=== PATIENT | male | born 1955 | race Caucasian/White ===

== ENCOUNTER 2022-02-22 08:07 | Observation (INO) ==
--- NOTE | 2022-01-20 10:04 | PAT Medication Instructions ---
Medication Instructions Date of Service January 20, 2022 Home Medications atorvastatin 40 mg tablet 40 mg PO QAM cholecalciferol (vitamin D3) 50 mcg (2,000 unit) tablet (Vitamin D3) 50 mcg PO QAM coenzyme Q10 100 mg capsule (CoQ-10) 100 mg PO QAM esomeprazole magnesium 40 mg capsule,delayed release (Nexium) 40 mg PO QAM ibuprofen 800 mg tablet 800 mg PO DAILY PRN montelukast 10 mg tablet (Singulair) 10 mg PO DAILY PRN telmisartan 80 mg tablet 80 mg PO QAM ASK your surgeon for instructions ibuprofen 800 mg tablet 800 mg PO DAILY PRN STOP taking 2 weeks before surgery coenzyme Q10 100 mg capsule (CoQ-10) 100 mg PO QAM DO NOT take the morning of surgery cholecalciferol (vitamin D3) 50 mcg (2,000 unit) tablet (Vitamin D3) 50 mcg PO QAM montelukast 10 mg tablet (Singulair) 10 mg PO DAILY PRN telmisartan 80 mg tablet 80 mg PO QAM Take morning of surgery With a small sip of water, OTHERWISE NOTHING TO EAT OR DRINK AFTER MIDNIGHT: atorvastatin 40 mg tablet 40 mg PO QAM esomeprazole magnesium 40 mg capsule,delayed release (Nexium) 40 mg PO QAM Other Notes If you have any questions please call us at [phone] or [phone] or [phone] or [phone]
--- NOTE | 2022-01-24 08:57 | Anesthesiology Consultation ---
Date of Service January 24, 2022 Assessment & Plan (1) Encounter for pre-operative examination: - check BSG am DOS. - Case discussed with Dr. Tubbs in detail including below and he advised nothing additional needed prior to surgery and that patient is acceptable risk to proceed. - CANO/SOB: chronic per pt, associated with occasional wheezes that per pt have been attributed to reflux, has upcoming PFTs and CT scan with pulm. He occasionally feels slightly more out of breath over past few days-while sitting up-denies chest discomfort, pleuritic chest discomfort, or change in peripheral edema/leg pain. He attributes this to anxiety regarding the surgery. Non- dyspneic, in NAD in clinic, speaking in full sentences without difficulty. Vitals stable. Normal cardiac and pulmonary examinations. 1+ pitting edema LLE, trace pitting edema RLE (chronic per pt without change or worsening) without erythema, warmth, tenderness or abnormality to palpation of distal lower extremities bilat. He was advised to contact his pulmonology office today and seek prompt medical attention for new or worsened symptoms. He verbalized understanding and agreement, denied questions or concerns. Optimization note with PAT testing for continuity of care to be faxed to pulmonology office. - COVID screening: Per assessment on 01/24/2022: Travel screen negative, no known COVID-19 positive contacts or current COVID-19 related symptoms in past 2 weeks. Pt vaccinated. Surgeon arranging preop COVID testing, scheduled 02/18/2022. Awaiting results. Chart Review Chart Review: Acceptable Risk for Surgery and Patient seen in Pre Admission Testing Teaching & Discussion Pre-Anesthesia Teaching/Discussion Notes: Instructed NPO after midnight before surgery, except medications with 15 cc of water. Medication instructions provided according to the PAT guidelines. History Surgery Operation Date: 02/22/22 10:15 Proposed Procedures p Left Total Knee Arthroplasty - Walt Miller DO Height/Weight Height: 6 ft 1 in Weight: 137.8 kg Allergies Allergy/AdvReac Type Severity Reaction Status Date / Time No Known Allergies Allergy Verified 01/19/22 11:12 Medications Home Medications Medication Instructions Recorded Confirmed Last Taken atorvastatin 40 mg tablet 40 mg PO QAM 01/19/22 01/19/22 Unknown cholecalciferol (vitamin D3) 50 50 mcg PO QAM 01/19/22 01/19/22 Unknown mcg (2,000 unit) tablet (Vitamin D3) coenzyme Q10 100 mg capsule 100 mg PO QAM 01/19/22 01/19/22 Unknown (CoQ-10) esomeprazole magnesium 40 mg 40 mg PO QAM 01/19/22 01/19/22 Unknown capsule,delayed release (Nexium) ibuprofen 800 mg tablet 800 mg PO DAILY PRN 01/19/22 01/19/22 Unknown montelukast 10 mg tablet 10 mg PO DAILY PRN 01/19/22 01/19/22 Unknown (Singulair) telmisartan 80 mg tablet 80 mg PO QAM 01/19/22 01/19/22 Unknown Past Medical History Medical History BPH (benign prostatic hyperplasia) Diabetes mellitus, type 2 diet controlled, last A1C ~6.4 Dysphagia "at times" denies choking, food and liquids Dyspnea on exertion ongoing x 6 months preceding COVID-19 illness, occasionally worsening such as in past few days per pt and with occasional wheezes-states has upcoming PFTs and CT scan by pul; denies chest discomfort, pleuritic chest discomfort or change in chronic peripheral edema GERD (gastroesophageal reflux disease) controlled, stable per pt History of COVID-19 (~07/2021) 07/2021-required supplemental oxygen 3 months-follows with [facility] History of esophageal dilatation states that feels close to where dilatation was needed in past-otherwise typically done in combination with colonoscopy which is next scheduled for several yrs Hyperlipidemia Hypertension controlled, stable per pt Kienbock's disease left wrist Leg edema Left leg edema greater than right leg edema within the last month, treated at [facility] 11/2021- "taylor's cyst left knee" and related the cyst to the cause of the swelling. improved s/p drainage. otherwise chronic and intermittent-wearing compression stockings and following with PCP/ortho; denies change or worsening Nausea and vomiting after administration of anesthetic agent Pneumonia due to COVID-19 virus (~07/2021) treated at [facility] inpatient for ~1 week, no ventilator needed. discharged on 5lpm via n/c until October 2021. follows with PCP and Lung Center [facility]. Sciatica of right side Sleep apnea cpap-nightly Vertigo intermittent, denies recent episodes Patient denies h/o stroke, seizures, heart attack, heart failure, blood clots or blood transfusions. Exercise / Class Metabolic Activity II 4-5 Yardwork/Stairs/Walk up hill (SOB going up 1 FOS, ongoing x 6 months- worsened after COVID pneumonia) Past Family History Family History Other No family history of adverse response to anesthesia Past Surgical History Surgical History H/O oral surgery peridontal surgery H/O wisdom tooth extraction History of appendectomy History of cholecystectomy History of colonoscopy History of esophagogastroduodenoscopy (EGD) History of open reduction and internal fixation (ORIF) procedure Left ankle History of open reduction and internal fixation (ORIF) procedure left wrist with hardware and fusion S/P epidural steroid injection SI Joint injections and Lumbar Epidural steroid injections with Pain Management [facility] Jon S/P right knee arthroscopy (~1997) S/P scar revision left side of forehead S/P vasectomy Past Anesthesia History No Hx of Anesthesia Complications and No Family Hx of Anesthesia Complications History of PONV History of PONV and Hx of Motion Sickness Social History Smoking Status: Never smoker Do You Dip or Chew Tobacco: No Hx Alcohol Use: Yes alcohol intake frequency: a few times a month Hx Substance Use: No substance use type: does not use Review of Systems Patient denies chest pain, fever, chills, cough, wheezing, new or changed dizziness/lightheadedness in recent days, nausea, vomiting, or palpitations. Physical Exam Vital Signs Vitals BP 121/81 P 80 SP02 95% on RA RESP 17 Physical Full cervical extension range of motion without pain TMD 3.5 finger breaths Mallampati Score 4 Dentition: intact, several missing teeth, one chipped tooth right upper side; denies loose teeth, caps/crowns, implants or bridges Lungs: normal respiratory effort. Clear throughout to auscultation, no adventitious breath sounds Cardiac: regular rate and rhythm, no murmurs noted Carotid arteries: negative bruit bilat Extremities: 1+ pitting edema LLE, trace pitting edema RLE (chronic per pt without change); no erythema, warmth, tenderness or abnormality to palpation Lab Results Anesthesia Preop Results Results Anesthesia Widget: WBC 7.86 K/uL (4.8-10.8) 01/24/22 Hgb 15.5 g/dL (14.0-18.0) 01/24/22 Hct 44.7 % (42-52) 01/24/22 Plt 242 K/uL (130-400) 01/24/22 Na 140 mmol/L (136-145) 01/24/22 K 4.1 mmol/L (3.5-5.1) 01/24/22 Cl 106 mmol/L (98-107) 01/24/22 CO2 28 mmol/L (21-32) 01/24/22 BUN 20 mg/dl (6-23) 01/24/22 Creat 0.87 mg/dl (0.6-1.4) 01/24/22 Glucose Level 100 mg/dl (70-99(Fasting)) H 01/24/22 PT 10.9 Seconds (9.0-12.0) 01/24/22 PTT 26.0 Seconds (21.0-31.0) 01/24/22 INR 1.0 (0.9-1.1) 01/24/22 HA1c 6.5 % (4.5-5.6) H 01/24/22 Urine Color Yellow 01/24/22 Urine Appearance Clear (Clear) 01/24/22 Urine pH 5.0 (4.5-7.5) 01/24/22 Urine Specific [place] 1.015 (1.000-1.030) 01/24/22 Urine Protein Negative (Negative) 01/24/22 Urine Glucose (UA) Negative (Negative) 01/24/22 Urine Ketones Negative (Negative) 01/24/22 Urine Blood Negative (Negative) 01/24/22 Urine Nitrite Negative (Negative) 01/24/22 Urine Bilirubin Negative (Negative) 01/24/22 Urine Urobilinogen Negative (Negative) 01/24/22 Urine Leukocyte Esterase Negative (Negative) 01/24/22 Blood Type A Positive 01/24/22 Antibody Screen NEGATIVE 01/24/22 Testing Electrocardiogram Date: 01/24/22 NSR, rate 74 bpm Chest X-Ray Date: 01/24/22 Lung volumes are normal. No pneumothorax or pleural effusion is noted. Mild asymmetric reticulonodular interstitial thickening within the left lung is noted. Linear density within left lung favor scarring. There is no consolidation to suggest pneumonia. No evidence for pulmonary edema. Cardiac size is within normal limits. Degenerative changes of both glenohumeral joints are partially imaged. IMPRESSION: 1. No acute cardiopulmonary findings. 2. Linear density within the left lung suggestive of scarring. Mild asymmetric reticulonodular interstitial thickening within the left lung which is likely chronic.
--- NOTE | 2022-01-24 14:05 | History & Physical Report ---
Date of Service January 24, 2022 date of surgery: 02/22/22 procedure: Left Total Knee Arthroplasty Surgeon: Walt Miller Assessment & Plan (1) Arthritis of knee, left: Plan: Risks and benefits of procedure discussed in detail today, patient would like to proceed with a left total knee replacement at [facility] as scheduled. will obtain medical clearance from Dr Lombardo prior to surgery as well as obtain PATs at [facility]. Will place on ASA 81mg po bid x 1 month post op, f/u 2 weeks post op for routine post-operative care and x-ray, sooner if having any problems. will make arrangements for HHPT at the time of discharge. At this point in time, has failed conservative measures and would like to proceed with surgical intervention. The risks and benefits have been discussed including, but not limited to, risk of infection, nerve injury, stiffness, loss of motion, failure to improve, etc. Reasonable outcomes and options of treatment were discussed. An explanation of appropriate alternatives to the procedure that may be advantageous were disc ussed and their risks and benefits, as well as the risks and benefits of not proceeding with treatment. I offered to answer any additional inquiries concerning the treatment involved. All the patient's questions were answered. The patient is agreeable, understanding of the treatment plan and alternatives, and wishes to proceed with the treatment plan. History of Present Illness Chief Complaint: left knee pain Primary Care Provider: NO PCP Russell is a 66 year old male who complains of left knee pain, presents for pre- op evaluation prior to a left total knee replacement by Dr Miller at [facility]. He complains of pain, decreased range of motion, instability and stiffness in his left knee. Currently the patient states that the symptoms are moderate-severe and rated 8/10. The pain is described as aching, sharp and throbbing. His symptoms are aggravated by ascending stairs, daily activities, first steps while awake walking. Unable to take NSAIDS due to stomach upset. He has been treated with previous Zilretta injections as well as visco injections in the past without much relief. Allergies Allergy/AdvReac Type Severity Reaction Status Date / Time No Known Allergies Allergy Verified 01/19/22 11:12 Home Medications Medication Instructions Recorded Confirmed Type atorvastatin 40 mg tablet 40 mg PO QAM 01/19/22 01/19/22 History cholecalciferol (vitamin D3) 50 50 mcg PO QAM 01/19/22 01/19/22 History mcg (2,000 unit) tablet (Vitamin D3) coenzyme Q10 100 mg capsule 100 mg PO QAM 01/19/22 01/19/22 History (CoQ-10) esomeprazole magnesium 40 mg 40 mg PO QAM 01/19/22 01/19/22 History capsule,delayed release (Nexium) ibuprofen 800 mg tablet 800 mg PO DAILY PRN 01/19/22 01/19/22 History montelukast 10 mg tablet 10 mg PO DAILY PRN 01/19/22 01/19/22 History (Singulair) telmisartan 80 mg tablet 80 mg PO QAM 01/19/22 01/19/22 History Past Med/Surg History Medical History BPH (benign prostatic hyperplasia) Diabetes mellitus, type 2 diet controlled, last A1C ~6.4 Dysphagia "at times" denies choking, food and liquids Dyspnea on exertion ongoing x 6 months preceding COVID-19 illness, occasionally worsening such as in past few days per pt and with occasional wheezes-states has upcoming PFTs and CT scan by pul; denies chest discomfort, pleuritic chest discomfort or change in chronic peripheral edema GERD (gastroesophageal reflux disease) controlled, stable per pt History of COVID-19 (~07/2021) 07/2021-required supplemental oxygen 3 months-follows with [facility] History of esophageal dilatation states that feels close to where dilatation was needed in past-otherwise typically done in combination with colonoscopy which is next scheduled for several yrs Hyperlipidemia Hypertension controlled, stable per pt Kienbock's disease left wrist Leg edema Left leg edema greater than right leg edema within the last month, treated at [facility] 11/2021- "taylor's cyst left knee" and related the cyst to the cause of the swelling. improved s/p drainage. otherwise chronic and intermittent-wearing compression stockings and following with PCP/ortho; denies change or worsening Nausea and vomiting after administration of anesthetic agent Pneumonia due to COVID-19 virus (~07/2021) treated at [facility] inpatient for ~1 week, no ventilator needed. discharged on 5lpm via n/c until October 2021. follows with PCP and [facility]. Sciatica of right side Sleep apnea cpap-nightly Vertigo intermittent, denies recent episodes Surgical History H/O oral surgery peridontal surgery H/O wisdom tooth extraction History of appendectomy History of cholecystectomy History of colonoscopy History of esophagogastroduodenoscopy (EGD) History of open reduction and internal fixation (ORIF) procedure Left ankle History of open reduction and internal fixation (ORIF) procedure left wrist with hardware and fusion S/P epidural steroid injection SI Joint injections and Lumbar Epidural steroid injections with Pain Management [facility] S/P right knee arthroscopy (~1997) S/P scar revision left side of forehead S/P vasectomy Family History Other No family history of adverse response to anesthesia Social History Smoking Status: Never smoker Second Hand Exposure: No; Hx Alcohol Use: Yes Hx Substance Use: No Preferred Language: Georgian 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 Beliefs That Will Affect Care: None Current Living Situation: Spouse Feels Safe at Home: Yes Assistive Devices: CPAP Review of Systems Review of Systems: All systems reviewed & are unremarkable except as noted in HPI & below Constitutional: no fever, no chills and no sweats Respiratory: no cough and no dyspnea Cardiovascular: no chest pain, no dyspnea and no orthopnea Gastrointestinal: no abdominal pain, no nausea and no vomiting Musculoskeletal: as per Subjective / HPI Physical Exam Physical Exam: HT: 6ft 1in WT: 137.8kg BP: 130/70 Pulse: 60 Constitutional: WD/WN, vitals as above no acute distress Respiratory: normal respiratory effort, lungs clear to auscultation no respiratory distress, no labored breathing and does not use accessory muscles Cardiovascular: RRR, no murmur, no edema Gastrointestinal (Abdomen): normal bowel sounds, soft, nontender, no hepatosplenomegaly Musculoskeletal: Knee: + knee abnormal to inspection (LEFT KNEE: ), + effusion (+1 effusion), + limited ROM of knee (ROM 0/3/110), + knee ROM with crepitation, + joint line tenderness (medial joint line) and + Mikel's sign positive; no deformity, no skin erythema, no ecchymosis, no valgus laxity, no varus laxity, anterior drawer test negative, Anish's sign negative and pivot shift test negative Results & Data Results & Data ([facility]) Diagnostic Findings Left Knee X-ray: left knee series confirm advanced degenerative changes to the left knee, showing joint space narrowing, osteophyte formation and subchondral sclerosis. no acute bony pathology noted.
[~2022-02-22 08:07] MED LIST: ACETAMINOPHEN 500 MG TAB PO SCH; BUPIVACAINE 0.5 % 5 MG/1 ML PF 10ML VIAL ONE; CeleBREX 200 MG CAP PO SCH; EPINEPHrine INJ 1 MG/ML AMP ONE; FAMOTIDINE 20 MG TAB PO SCH; GABAPENTIN 300 MG CAP PO SCH; LR 500ML BOLUS, THEN 15ML/HR IV SCH; METOCLOPRAMIDE HCL 10 MG TABLET PO SCH; ROPIVACAINE 0.5% 5 MG/ML 30 ML VIAL ONE; ROPIVACAINE 0.5% HCL/PF 150 MG, BUPIVACAINE 0.75% MPF 20 ML, EPINEPHrine 30MG/30ML (OR ... INSTIL SCH; TRANEXAMIC ACID 1,000 MG **IV Intra-op IV SCH; TRANEXAMIC ACID 1,000 MG **IV Pre-op IV SCH; dexAMETHasone 4 MG TAB PO SCH
--- NOTE | 2022-02-22 08:36 | History & Physical Bridge Note ---
Date of Service February 22, 2022 History & Physical Bridge Note I have examined the patient, reviewed the History & Physical and in the interval since the performance of the History & Physical I have noted the following changes of clinical significance: no changes noted
[2022-02-22] MEDS ORDERED: PROPOFOL IV EMULSION 10 MG/ML 20 ML VIAL IV ONE (09:14)
[2022-02-22] MEDS ORDERED: LIDOCAINE 2% MPF LOCAL 5 ML VIAL INFIL ONE (09:14)
[2022-02-22] MEDS ORDERED: fentaNYL citrate 100 MCG/2 ML VIAL ONE (09:14)
[2022-02-22] MEDS ORDERED: MIDAZOLAM HCL 1 MG/ML 2ML VIAL ONE (09:14)
[2022-02-22] MEDS ORDERED: ORTHO JOINT ANESTHETIC ONE (09:34)
[2022-02-22] MEDS ORDERED: ONDANSETRON INJ 2 MG/ML 2 ML VIAL IV PRN ×2 (11:06→12:38)
[2022-02-22] MEDS ORDERED: FLUMAZENIL 0.1 MG/1 ML 10 ML VIAL IV PRN (11:06)
[2022-02-22] MEDS ORDERED: PROMETHAZINE HCL 12.5 MG in SODIUM CHLORIDE 0.9% 50 ML IV PRN (11:06)
[2022-02-22] MEDS ORDERED: ePHEDrine sulfate 50 MG/ML AMP IV PRN (11:06)
[2022-02-22] MEDS ORDERED: HYDROmorphone INJ 1 MG/ML SYRINGE IV PRN ×2 (11:06→12:38)
[2022-02-22] MEDS ORDERED: NALOXONE HCL 0.4 MG/1 ML VIAL/CARP IV PRN ×2 (11:06→12:38)
[2022-02-22] MEDS ORDERED: ATROPINE SULFATE 0.1 MG/ML 10ML SYR IV PRN (11:06)
[2022-02-22] MEDS ORDERED: fentaNYL citrate 100 MCG/2 ML VIAL IV PRN (11:06)
[2022-02-22] MEDS ORDERED: PHENYLEPHRINE 100MCG/ML 5ML SYR ONE (12:03)
--- NOTE | 2022-02-22 12:03 | Operative Report ---
Post Operative Report Pre & Post Diagnosis Operation Date: 02/22/22 10:25 Pre-Op Diagnosis: Left knee osteoarthritis. Post-Op Diagnosis: Left knee osteoarthritis. I identified the patient and participated in the time-out.: Yes Procedure Operation Date: 02/22/22 10:25 Actual Procedures p Left Total Knee Arthroplasty(Left) utilizing [employer] journey 2 patient matched total knee arthroplasty size femur 6 tibia 6 polythirteen patella 35 wayne- Walt Miller DO Surgeon Walt Miller DO [employer] Operator REGINO Michelle Estimated Blood Loss 5 Findings Consistent with Post-Op Diagnosis Patient presents with severe end-stage tricompartmental DJD with varus alignment subchondral sclerosis marginal osteophytes eburnated [id number] and moderate to large effusion Specimens Bone and cartilage Drains Medium bore Hemovac Anesthesia Type MAC Spinal Regional Complications none Disposition Accompanied Patient To Recovery: No Disposition: Recovery Room Indications Patient presents with severe end-stage tricompartmental DJD failed attempted conservative management clinic physical therapy anti-inflammatories relative rest activity modification corticosteroid injection viscosupplementation Description of Procedure After proper prepping and draping of the left lower extremity anterior midline incision was made over the region of the extensor extensor mechanism after meticulous hemostasis was obtained and maintained in subcutaneous tissues a medial parapatellar incision was made The patella was subluxed lateralward the medial lateral gutter were cleaned from any hypertrophic synovitis and scar tissue of the distal femoral block was placed and the distal femoral osteotomy cut was made subsequently the chamfers anterior and posterior osteotomy cuts were made utilizing the 4-in-1 block the tibia was subsequently subluxed anteriorward medial and ateral meniscal remnants were excised in their entirety remnants of the anterior and posterior cruciate ligaments were excised in their entirety excellent exposure of the proximal tibia was obtained the tibial osteotomy guide was placed on the proximal tibial osteotomy cut was made once again the knee was irrigated with copious amounts of sterile saline solution the patella was subsequently everted lateralward thickened scar tissue around the patella was removed the patella was subsequently cut utilizing a freehand technique and was drilled prepared for final preparation and placement of patella socially flexion-extension gaps were checked and the equal and symmetric trials were placed to the appropriate femoral and tibial trials with poly-spacer being placed for equal flexion and extension gaps and full range of motion in cluding extension to 0 and flexion to 140 the trial components after having been taken to recovery range of motion was subsequently removed meticulous hemostasis was obtained and maintained subsequently a knee block injection of joint cocktail including ropivacaine 0.5% 150 mg. Bupivacaine 0.5% epinephrine 1-200,030 mL's toradol 30 mg dexamethasone 4 mg ketamine 10 mg clonidine 100 micrograms normal saline solution 30 mg was infiltrated into the soft tissues of the posterior knee medial lateral gutters and periosteal synovium special attention was paid to protect neurovascular structures at all times subsequently trial components having been removed the knee was irrigated with sterile saline solution. debris was removed the proximal tibia was subsequently prepared and was made ready for the placement of the tibial component tibial component was also cemented and tamped into position the femoral component was subsequently placed and cemented in the position the patellar component was subsequently cemented in position because hemostasis once again obtained and maintained wound having been thoroughly irrigated with debridement and debridement lavage was performed as well as a medial parapatellar incision closed with #1 Vicryl in interrupted fashion subcutaneous was closed with #2 Vicryl skin was closed with skin clips. PA-C was necessary for prepping and drapping as well as wound closure of deep fascia Sub cutaneous tissue and skin and was necessary for the case. A sterile compressive dressing was placed patient was taken to recovery in stable condition of report dictated by Paul I attest to the content of the Intraoperative Record and any orders documented therein. Any exceptions are noted below.Due to the complex nature of the procedure, the entire surgery was performed with the operational assistance of REGINO Michelle. The post production assistant, under direct supervision, was involved in the actual performance of all aspects of the surgical procedure including hemostasis, tissue retraction and incision, instrument management, patient positioning, and wound closure. I attest to the content of the Intraoperative Record and any orders documented therein. Any exceptions are noted below.
[2022-02-22] MEDS ORDERED: bisacodyL 10 MG SUPP PR PRN (12:38)
[2022-02-22] MEDS ORDERED: METOCLOPRAMIDE HCL INJ 5 MG/ML 2 ML VIAL IV PRN (12:38)
[2022-02-22] MEDS ORDERED: diphenhydrAMINE Capsule 25 MG CAP PO PRN (12:38)
[2022-02-22] MEDS ORDERED: MAGNESIUM HYDROXIDE SUSP 30 ML UDC PO PRN (12:38)
--- NOTE | 2022-02-22 13:06 | XRay Report ---
XR knee LT 1 or 2V routine CLINICAL HISTORY: Surgical Post Op TECHNIQUE: 2 views of the left knee were obtained. Comparison: None available at the time of this dictation. FINDINGS: Patient is status post total knee arthroplasty with expected postsurgical changes including soft tiss ue swelling and subcutaneous emphysema. No periarticular lucency or hardware fracture is seen. IMPRESSION: Expected postoperative appearance status post placement of total knee arthroplasty. ACT 112: Negative or not required by law. Electronically signed by: Shlomo De Souza M.D. 02/22/2022 1:04 PM
--- NOTE | 2022-02-22 13:44 | Anesthesiology Progress Note ---
Date of Service February 22, 2022 Anesthesia Post Procedure Vital Signs Vital Signs: Temp Pulse Resp BP Pulse Ox O2 Del Method O2 Flow Rate 02/22/22 13:25 80 19 108/63 93 Room Air 02/22/22 13:15 81 18 111/66 94 Room Air 02/22/22 13:05 80 14 105/60 94 Room Air 02/22/22 12:55 36.7 C 79 20 96/57 L 98 Oxymask 02/22/22 12:45 83 12 100/50 L 97 Oxymask 02/22/22 12:35 36.2 C L 85 18 97/50 L 97 Oxymask 10 02/22/22 08:49 36.7 C 75 20 115/86 95 Room Air Transfer of Care Handoff Completed per policy Notes Mental Status: alert / awake / arousable Patient Amnestic to Procedure: Yes Nausea / Vomiting: adequately controlled Pain: adequately controlled Airway Patency, RR, SpO2: stable & adequate BP & HR: stable & adequate Hydration State: stable & adequate Neuraxial Anesthesia: was administered and sensory block is resolving Anesthetic Complications: no major complications apparent
[2022-02-22] MEDS ORDERED: MONTELUKAST SODIUM 10 MG TABLET PO PRN (14:19)
[2022-02-22] MEDS: SODIUM CHLORIDE 0.9% 1000ML 1,000 ML IV SCH (14:49)
[2022-02-22] MEDS: KETOROLAC TROMETHAMINE 15 MG/ML VIAL IV SCH ×2 (15:29→21:58)
[2022-02-22] MEDS: ACETAMINOPHEN 500 MG TAB PO SCH ×2 (15:29→21:57)
[2022-02-22] MEDS: oxyCODONE HCL IR 5 MG TAB (IMMEDIATE RELEASE) PO PRN ×2 (16:28→21:53)
--- NOTE | 2022-02-22 16:57 | Consultation ---
Date of Consultation February 22, 2022 Assessment & Plan (1) Arthritis of knee, left: s/p left TKR today by Dr Miller defer pain management, IV fluids, DVT proph, disposition to primary orthopedic team no ischemic symptoms post-op and vitals are stable (2) Diabetes mellitus, type 2: BSGs are high post-op due to perioperative stress, perioperative dexamethasone use, etc change diet to T2DM novolog SSI - correction factor 25, carb ratio 1:8 low threshold for basal insulin check BSGs ac/hs will d/w him using metformin in the future given his current HbA1C (3) BPH (benign prostatic hyperplasia): not on any alpha anabel or other agent watch for any post-op urinary retention, etc (4) GERD (gastroesophageal reflux disease): change home nexium to protonix while here (5) History of COVID-19: weaned off supplemental [place] O2 in October 2021 per records residual CANO from such follows with pulmonary in [place] O2 sats wnl while here (6) Hypertension: hold home ARB until AM labs on 02/23 confirm that renal function is stable (7) Sleep apnea: cont home CPAP (8) Hyperlipidemia: cont home statin agent (lipitor) (9) DVT prophylaxis: per orthopedics - aspirin 81mg BID (10) Morbid obesity with BMI of 40.0-44.9, adult: BMI ~40 Plan Prevention of constipation - senna along with miralax. updated at bedside. Thank you for this consult. Will follow with you. History of Present Illness Requesting Physician: Walt Miller DO Reason for Consultation: post-operative medical management Attending Physician: Walt Miller DO History of Present Illness 66yo male with diet-controlled T2DM, BPH, HTN, hyperlipidemia, and COVID-19 pneumonia requiring O2 therapy from 07/27 to 10/26 presented today for elective left TKR by Dr Miller. Per the operative record his EBL was ~5cc. I saw him on the orthopedic floor post-op and he was resting comfortably with minimal left knee pain. was at bedside. Since his operation he has had no chest pain, dyspnea, CANO, abd pain, or nausea/emesis. He does not check his BSGs at home on a regular basis. He was last on [place] O2 for his COVID in 10/2021. 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 He brought his CPAP device from home for his CARMEN. Allergies Allergy/AdvReac Type Severity Reaction Status Date / Time No Known Allergies Allergy Verified 02/22/22 08:45 Home Medications Medication Instructions Recorded Confirmed Type atorvastatin 40 mg tablet 40 mg PO QAM 01/19/22 02/22/22 History cholecalciferol (vitamin D3) 50 50 mcg PO QAM 01/19/22 02/22/22 History mcg (2,000 unit) tablet (Vitamin D3) coenzyme Q10 100 mg capsule 100 mg PO QAM 01/19/22 02/22/22 History (CoQ-10) esomeprazole magnesium 40 mg 40 mg PO QAM 01/19/22 02/22/22 History capsule,delayed release (Nexium) ibuprofen 800 mg tablet 800 mg PO DAILY PRN Pain 01/19/22 02/22/22 History montelukast 10 mg tablet 10 mg PO DAILY PRN sob/breathing 01/19/22 02/22/22 History (Singulair) telmisartan 80 mg tablet (Micardis) 80 mg PO QAM 01/19/22 02/22/22 History Patient History Medical History (Updated 02/22/22 @ 17:36 by Gregorio Streeter) Wallace cyst left leg. drained BPH (benign prostatic hyperplasia) Diabetes mellitus, type 2 diet controlled, last A1C ~6.4 Dysphagia "at times" denies choking, food and liquids Dyspnea on exertion ongoing x 6 months preceding COVID-19 illness, occasionally worsening such as in past few days per pt and with occasional wheezes-states has upcoming PFTs and CT scan by pul; denies chest discomfort, pleuritic chest discomfort or change in chronic peripheral edema GERD (gastroesophageal reflux disease) controlled, stable per pt History of COVID-19 (~07/2021) 07/2021-required supplemental oxygen 3 months-follows with [facility] pul History of esophageal dilatation states that feels close to where dilatation was needed in past-otherwise typically done in combination with colonoscopy which is next scheduled for several yrs Hyperlipidemia Hypertension controlled, stable per pt Kienbock's disease left wrist Leg edema Left leg edema greater than right leg edema within the last month, treated at [facility] 11/2021- "wallace's cyst left knee" and related the cyst to the cause of the swelling. improved s/p drainage. otherwise chronic and intermittent-wearing compression stockings and following with PCP/ortho; denies change or worsening Nausea and vomiting after administration of anesthetic agent Pneumonia due to COVID-19 virus (~07/2021) treated at [facility] inpatient for ~1 week, no ventilator needed. discharged on 5lpm via n/c until October 2021. follows with PCP and [facility]. Sciatica of right side Sleep apnea cpap-nightly Vertigo intermittent, denies recent episodes Surgical History H/O oral surgery peridontal surgery H/O wisdom tooth extraction History of appendectomy History of cholecystectomy History of colonoscopy History of esophagogastroduodenoscopy (EGD) History of open reduction and internal fixation (ORIF) procedure Left ankle History of open reduction and internal fixation (ORIF) procedure left wrist with hardware and fusion S/P epidural steroid injection SI Joint injections and Lumbar Epidural steroid injections with Pain Management [facility] S/P right knee arthroscopy (~1997) S/P scar revision left side of forehead S/P vasectomy Family History Father Hypertension Diabetes Mother Hypertension Other No family history of adverse response to anesthesia Social History (Updated 02/22/22 @ 17:26 by Gregorio Streeter) Smoking Status: Former smoker packs per day: 1; Years Smoked: 25; Second Hand Exposure: No; Do You Dip or Chew Tobacco: No; Tobacco Cessation Education Requested by Patient: No Hx Alcohol Use: Yes Hx Substance Use: No Preferred Language: Ukrainian Communication Ability: Effective Security Team Lead Required: No Beliefs That Will Affect Care: None marital status: Current Living Situation: Spouse current occupational status: retired 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 How many Children do You have: 2 How many Children do You have Comment: sons Other Information That Helps Us Care for You: No Feels Safe at Home: Yes Safety Concerns: Feels Safe At This Time Assistive Devices: CPAP Review of Systems Review of Systems: gen - no fevers or chills; good appetite eyes - no recent visual changes HENT - chronic dysphagia, requires periodic EGD dilatations CV - no chest pain pulm - mild, chronic CANO; no cough GI - no abd pain, nausea, or emesis - no dysuria musculo - chronic b/l shoulder and b/l knee pains skin - no rash endo - does not check BSGs at home neuro - chronic neuropathy of feet; no headaches Physical Exam Physical Exam: gen - obese, NAD, resting comfortably in bed eyes - PERRL HENT - MMM, no lesions neck - no JVD, no thyroid masses heart - RRR, s1 s2, no murmur lungs - CTA b/l abd - soft NT ND BS+ musculo - left knee dressings in place; edema of left foot 1+ at minimum; no edema on right skin - no rash neuro - strength 5/5 x 4 exts; DTRs 2+ bl psych - a/o x 3 lymph - no cervical lymph nodes b/l Results & Data ([facility]) Vital Signs (Past 12 Hours) Vital Signs Temp Pulse Pulse Resp BP Pulse Ox O2 Del Method 02/22/22 16:22 36.3 C L 94 H 16 119/71 94 Room Air 02/22/22 15:15 36.8 C 86 16 128/77 96 Room Air 02/22/22 14:45 36.5 C 84 16 104/68 93 Room Air 02/22/22 14:15 36.6 C 83 16 116/71 96 Room Air 02/22/22 13:54 82 21 102/65 93 Room Air 02/22/22 13:45 36.4 C L 83 18 118/69 93 Room Air 02/22/22 13:25 80 19 108/63 93 Room Air 02/22/22 13:15 81 18 111/66 94 Room Air 02/22/22 13:05 80 14 105/60 94 Room Air 02/22/22 12:55 36.7 C 79 20 96/57 L 98 Oxymask 02/22/22 12:45 83 12 100/50 L 97 Oxymask 02/22/22 12:35 36.2 C L 85 18 97/50 L 97 Oxymask 02/22/22 08:49 36.7 C 75 20 115/86 95 Room Air O2 Flow Rate 02/22/22 16:22 02/22/22 15:15 02/22/22 14:45 02/22/22 14:15 02/22/22 13:54 02/22/22 13:45 02/22/22 13:25 02/22/22 13:15 02/22/22 13:05 02/22/22 12:55 10 02/22/22 12:45 10 02/22/22 12:35 10 02/22/22 08:49 Laboratory Results pre-op "clearance" scanned note noted pre-op labs noted to be normal including CBC, BMP HBa1c 6.5% January 2022 at [facility] PG Care Time/CCT Total # of Minutes Spent Total Time Spent with Patient: Total time spent is greater than 50% in coordination of care (as documented) at patient's floor/unit and/or counseling patient: Coding Level of Care Code 40621 Subseq Obs Care Lvl 3 Diagnoses Arthritis of knee, left M17.12 Diabetes mellitus, type 2 E11.9 BPH (benign prostatic hyperplasia) N40.0 GERD (gastroesophageal reflux disease) K21.9 History of COVID-19 Z86.16 Hypertension I10 Sleep apnea G47.30 Hyperlipidemia E78.5 DVT prophylaxis Z29.9 Morbid obesity with BMI of 40.0-44.9, adult E66.01; Z68.41
[2022-02-22] MEDS ORDERED: CARBOHYDRATES FOR HYPOGLYCEMIA PO PRN (17:30)
[2022-02-22] MEDS ORDERED: GLUCAGON FOR INJ 1 MG VIAL IM PRN (17:30)
[2022-02-22] MEDS ORDERED: GLUCOSE 40% GEL 15 GM TUBE PO PRN (17:30)
[2022-02-22] MEDS ORDERED: GLUCOSE 10 TAB/TUBE PO PRN (17:30)
[2022-02-22] MEDS ORDERED: DEXTROSE 50% 50 ML SYRINGE IV PRN (17:30)
[2022-02-22] MEDS: INSULIN ASPART PER UNIT SC SCH ×2 (18:17→21:51)
[2022-02-22] MEDS: ceFAZolin 2000MG 2,000 MG/15 ML SYR IV SCH (18:25)
[2022-02-22] MEDS ORDERED: SENNA 8.6 MG TAB PO SCH (21:00)
[2022-02-22] MEDS: DOCUSATE SODIUM 100 MG CAP PO SCH (21:55)
[2022-02-22] MEDS: ASPIRIN 81 MG ECTAB PO SCH (21:56)
[2022-02-23] MEDS: ceFAZolin 2000MG 2,000 MG/15 ML SYR IV SCH (02:04)
[2022-02-23] MEDS: KETOROLAC TROMETHAMINE 15 MG/ML VIAL IV SCH ×2 (04:00→09:00)
[2022-02-23] MEDS: oxyCODONE HCL IR 5 MG TAB (IMMEDIATE RELEASE) PO PRN ×2 (05:22→09:41)
[2022-02-23] MEDS: ACETAMINOPHEN 500 MG TAB PO SCH (05:22)
[2022-02-23 06:58] LABS: BUN Creatinine Ratio 27.8 (10-20); Calcium 8.1 mg/dl (8.5-10.1); Creatinine Clr Calc Pharmacy 118.8 ml/min; Est GFR (African American) 103.5 ml/min; Est GFR (Non-African American) 89.3 ml/min; Potassium 4.1 mmol/L (3.5-5.1)
[2022-02-23] MEDS: SODIUM CHLORIDE 0.9% 1000ML 1,000 ML IV SCH (07:12)
[2022-02-23] MEDS: ASPIRIN 81 MG ECTAB PO SCH (08:03)
[2022-02-23] MEDS: DOCUSATE SODIUM 100 MG CAP PO SCH (08:03)
[2022-02-23 08:17] LABS: Hematocrit (blood only) 39.4 % (40.1-51.0); Hemoglobin 13.3 g/dl (14.0-18.0); Mean Corpuscular Hemoglobin 29.8 pg (25.0-34.0); Mean Corpuscular Hgb Conc 33.8 g/dL (32.0-36.0); Mean Corpuscular Volume 88.3 fL (80.0-100.0); Platelet Count 213 K/uL (130-400); RDW Coefficient of Variation 13.9 % (11.5-14.5); RDW Standard Deviation 44.8 fL (36.4-46.3); Red Blood Count 4.46 M/uL (4.63-6.08); White Blood Count 14.44 K/ul (4.8-10.8)
[2022-02-23] MEDS: INSULIN ASPART PER UNIT SC SCH (08:46)
[2022-02-23] MEDS ORDERED: CHOLECALCIFEROL 1,000 UNITS 25 MCG TAB PO SCH (09:00)
[2022-02-23] MEDS ORDERED: FLUTICASONE PROPIONATE NA SPR 16 GM BTL SCH (09:00)
[2022-02-23] MEDS ORDERED: PANTOprazole 40 MG TAB PO SCH (09:00)
[2022-02-23] MEDS ORDERED: TELMISARTAN 40 MG TAB PO SCH (09:00)
[2022-02-23] MEDS ORDERED: ATORVASTATIN 40 MG TAB PO SCH (09:00)
[2022-02-23] MEDS ORDERED: POLYETHYLENE (MIRALAX) 17 GM PACK PO SCH (09:00)
[2022-02-23] MEDS ORDERED: MULTIVITAMIN TAB PO SCH (09:00)
--- NOTE | 2022-02-23 09:22 | Orthopedic Progress Note ---
Date of Service February 23, 2022 Assessment & Plan (1) History of total left knee replacement: Plan: POD #1 s/p left TKA pt/ot dvt proph with LILIANA/SCD/ASA plan for d/c home with home health PT Admission and Anticipated Discharge Date Admission Date: February 22, 2022 Subjective POD #1 s/p Left TKA Review of Systems Constitutional: no fever, no chills and no sweats Respiratory: no cough and no dyspnea Cardiovascular: no chest pain and no dyspnea Gastrointestinal: no abdominal pain, no nausea and no vomiting Physical Exam Physical Exam: Vital Signs Temp 36.8 C 02/23/22 07:55 Pulse 79 02/23/22 07:55 Resp 20 02/23/22 07:55 BP 122/79 02/23/22 07:55 Pulse Ox 96 02/23/22 07:55 O2 Del Method 02/23/22 07:55 O2 Flow Rate 10 02/22/22 12:55 Intake & Output 02/22/22 02/23/22 02/23/22 18:59 06:59 18:59 Intake Total 2021.5 / 3022.5 1000 / 3022.5 Output Total 35 / 1485 1450 / 1485 450 / 450 Balance 1987.5 / 1537.5 -450 / 1537.5 -450 / -450 Weight 136.8 kg Intake: IV 272.5 / 1272.5 1000 / 1272.5 Lactated Ringe r's 1,000 ml @ 15 0 / 0 mls/hr IV .Q24 H JV Rx#: [id number] Sodium Chlorid e 0.9% 1000ML 1, 1000 / 1000 000 ml @ 100 m ls/hr IV .Q10H JV Rx#:[id number] Tranexamic Aci d / 0.7% NaCl 1, 200 / 200 000 mg In 100 ml @ 600 mls/hr IV TODAY@0600 JV Rx#:[id number] ceFAZolin 3000 MG 72.5 ml @ 130 72.5 / 72.5 mls/hr IV PREO P JV Rx#: [id number] IV Perioperative 1750 / 1750 Output: Urine 1000 / 1000 450 / 450 Estimated Blood Loss 5 / 5 Drain Output 30 / 480 450 / 480 Left Knee 30 / 480 450 / 480 Other: Weight Measureme nt Method Standing Scale Musculoskeletal: Left Leg: NVDI, calf SNT, negative paolo sign. DP palpable, able to wiggle toes/ankle movement without difficulty. dressing clean dry and intact. Results & Data ([facility]) Vital Signs (Past 12 Hours) Vital Signs Temp Pulse Resp BP Pulse Ox O2 Del Method 02/23/22 07:55 36.8 C 79 20 122/79 96 Room Air 02/23/22 02:05 36.7 C 93 H 18 122/64 96 Nasal CPAP
--- NOTE | 2022-02-23 11:54 | Hospitalist Progress Note ---
Date of Service February 23, 2022 Assessment & Plan (1) Arthritis of knee, left: Plan: POD #1 s/p left TKR by Dr Miller doing well from orthopedic standpoint DVT proph - asa 81mg BID Minimal amount of acute blood loss anemia on H/H check today - no Rx needed. (2) Diabetes mellitus, type 2: Plan: BSGs were high post-op due to perioperative stress, perioperative dexamethasone use, etc but improved this am cont novolog SSI until discharge I did speak with him about initiating metformin under his PCP's care in the future given his HbA1c level, etc he will discuss this with his PCP at time of follow-up (3) BPH (benign prostatic hyperplasia): Plan: no issues at this time (4) GERD (gastroesophageal reflux disease): Plan: resume nexium upon d/c home (5) History of COVID-19: Plan: weaned off supplemental [place] O2 in October 2021 per records residual CANO from such follows with pulmonary in [place] has been stable from pulmonary standpoint while here (6) Hypertension: Plan: can resume ARB at this time creatinine wnl on BMP today (7) Sleep apnea: Plan: cont home CPAP (8) Hyperlipidemia: Plan: cont statin (9) DVT prophylaxis: Plan: per orthopedics - aspirin 81mg BID (10) Morbid obesity with BMI of 40.0-44.9, adult: Plan: BMI ~40 Plan Discussed used of senna along with miralax at home for prevention/treatment constipation. Ok from medical standpoint to d/c home today. f/u with PCP for DM, etc. Admission and Anticipated Discharge Date Admission Date: February 22, 2022 Subjective patient with mild left knee pain but otherwise feeling good good appetite passing flatus, but no stool yet no dyspnea, chest pain or abd pain Review of Systems Review of Systems: gen - no fevers cv - no orthopnea pulm - no CANO GI - no nausea/emesis - voiding ok Physical Exam Physical Exam: gen - NAD, looks good mouth - MMM neck - no JVD heart - RRR, s1 s2, no murmur lungs - CTA b/l abd - soft NT ND BS+ ext - 1+ edema left foot/ankle, trace edema right foot; pulses 2+ b/l musculo - left knee dressings intact Results & Data Results & Data ([facility]) Vital Signs (Past 12 Hours) Vital Signs Temp Pulse Resp BP Pulse Ox O2 Del Method 02/23/22 07:55 36.8 C 79 20 122/79 96 Room Air 02/23/22 02:05 36.7 C 93 H 18 122/64 96 Nasal CPAP Laboratory Results Laboratory Results - last 24 hr 02/22/22 02/22/22 02/22/22 12:38 17:19 20:29 WBC RBC Hgb Hct MCV MCH MCHC RDW Std Deviation RDW Coeff of Bridgette Plt Count MPV Sodium Potassium Chloride Carbon Dioxide Anion Gap BUN Creatinine Est Cr Clr Drug Dosing Est GFR ( Amer) Est GFR (Non-Af Amer) BUN/Creatinine Ratio Glucose POC Glucose 128 H 229 H 184 H Calcium 02/23/22 02/23/22 02/23/22 06:11 06:11 08:17 WBC 14.44 H RBC 4.46 L Hgb 13.3 L Hct 39.4 L MCV 88.3 MCH 29.8 MCHC 33.8 RDW Std Deviation 44.8 RDW Coeff of Bridgette 13.9 Plt Count 213 MPV 11.0 Sodium 135 L Potassium 4.1 Chloride 106 Carbon Dioxide 22 Anion Gap 7 BUN 25 H Creatinine 0.90 Est Cr Clr Drug Dosing 118.8 Est GFR ( Amer) 103.5 Est GFR (Non-Af Amer) 89.3 BUN/Creatinine Ratio 27.8 H Glucose 132 H POC Glucose 115 H Calcium 8.1 L PG Care Time/CCT Total # of Minutes Spent Total Time Spent with Patient: Total time spent is greater than 50% in coordination of care (as documented) at patient's floor/unit and/or counseling patient: Coding Level of Care Code 25830 Subseq Hosp Care Lvl 1 Diagnoses Arthritis of knee, left M17.12 Diabetes mellitus, type 2 E11.9 BPH (benign prostatic hyperplasia) N40.0 GERD (gastroesophageal reflux disease) K21.9 History of COVID-19 Z86.16 Hypertension I10 Sleep apnea G47.30 Hyperlipidemia E78.5 DVT prophylaxis Z29.9 Morbid obesity with BMI of 40.0-44.9, adult E66.01; Z68.41
[2022-02-23] MEDS ORDERED: CeleBREX 200 MG CAP PO SCH (21:00)
--- NOTE | 2022-02-24 19:46 | Discharge Summary ---
Date of Service date of discharge: February 23, 2022 date of admission: 02-22-22 Admission HPI Per Admitting Provider Russell is a 66 year old male who complains of left knee pain, presents for pre- op evaluation prior to a left total knee replacement by Dr Lai at [facility]. He complains of pain, decreased range of motion, instability and stiffness in his left knee. Currently the patient states that the symptoms are moderate-severe and rated 8/10. The pain is described as aching, sharp and throbbing. His symptoms are aggravated by ascending stairs, daily activities, first steps while awake walking. Unable to take NSAIDS due to stomach upset. He has been treated with previous Zilretta injections as well as visco injections in the past without much relief. Principal Diagnosis left knee arthritis Discharge Exam Musculoskeletal left knee: NVDI, calf SNT, negative paolo sign. DP palpable, able to wiggle toes/ankle movement without difficulty. CHITO dressing clean dry and intact. expected post-operative bruising noted. Discharge Data Allergies Allergy/AdvReac Type Severity Reaction Status Date / Time No Known Allergies Allergy Verified 02/22/22 08:45 Consultations 02/17/22 13:25 Consult Hospitalist Routine Procedures Performed Operation Date: 02/22/22 10:25 Actual Procedures p Left Total Knee Arthroplasty(Left) - Walt Lai DO Ordered Studies 02/22/22 05:00 US - OR guided needle placemen Routine Hospital Course (1) History of total left knee replacement: POD #1 s/p left TKA pt/ot dvt proph with LILIANA/SCD/ASA plan for d/c home with home health PT Total Time Total Time Spent Total Time Spent (In Minutes): 20 Discharge Plan Discharge Items Patient Disposition: Home - Home Health Services Reason For Visit: Left Knee Osteoarthritis Discharge Diagnosis: left total knee replacement Condition on Discharge: Good Activity: Per Instructions section Lifting: Wait until after follow-up appointment Weightbearing Comment: wbat with walker Non-emergency contact: Surgeon Call non-emergency contact if: you have any medication questions, your temperature is above 101, your wound has increased redness, your wound has increased drainage and your wound pain has increased Follow-up/Referrals: Walt Lai DO [Surgeon] - 03/10/22 2:00 pm (APPOINTMENT WITH RACHEL MAN PA-C IN THE [facility] OFFICE.) PCP,NO [Physician] - Diet: Regular Addtl Attending Provider Instructions: ACTIVITY RECOMMENDATIONS: SELF CARE INSTRUCTIONS AFTER TOTAL KNEE REPLACEMENT A. You may need to continue a physical therapy program after discharge from the hospital. There are several options available to you. Your doctor will assist you in selecting the best one for you. 1. An out-patient facility 2 to 3 times a week for therapy or home therapy. 2. Continue working on all exercises taught to you in the hospital. Your goals should be to increase bending of your knee to 90 degrees and beyond and to fully straighten your knee. B. You may progress at your own pace from walking with a walker or crutches to a cane; then to no assistive devices. C. Make walking a part of your daily routine. Be up as much as comfortable with rest periods throughout the day. Rest with leg elevation is very important. Use the ice wrap frequently for the first 3-4 weeks. D. There are no restrictions on activities. You may ride in a car, shop, participate in pretzel cooker and all social activities. E. Wear the long elastic stockings (LILIANA hose) 20 hours a day for 2 weeks after surgery. They can be removed several times a day for laundering and for a bath. F. You may shower, no tub baths until cleared by your doctor. SPECIAL CARE INSTRUCTIONS: VERY IMPORTANT TO READ AND REVIEW A. There are a few signs you need to watch for after you are home. Call [facility] if you notice any of the followin. Increased severe knee pain. Some pain is expected especially when you exercise. 2. Increased swelling in your leg or knee; pain or swelling of the calf muscle in either lower leg. 3. Any fluid drainage from the incision. 4. Shortness of breath or chest pain. B. Please call [facility] at if you have any concerns or questions about your operation or recovery. The doctor or his nurse will return your call promptly. C. You must take antibiotics before dental work, bladder, bowel or other surgery. Your doctor will provide you with a permanent care to carry describing this precaution. IMPORTANT: * REMEMBER TO TAKE ASPIRIN, 81 MG, TWICE DAILY FOR 4 WEEKS UNLESS OTHERWISE DIRECTED. THIS IS YOUR BLOOD THINNER. * HIGH RISK PATIENTS MAY BE PRESCRIBED A STRONGER BLOOD THINNER. THIS WILL BE PROVIDED AT DISCHARGE. * CALL IF INCREASED PAIN, REDNESS, DRAINAGE OR FEVER GREATER THAT 101. * WEAR LILIANA HOSE 20 HOURS PER DAY FOR 2 WEEKS. * CHITO Dressing- This is a large suction dressing covering your incision. This will help pull any excess drainage from the wound and allow your incision to heal properly. You may shower with this if you can keep the unit outside of the shower. If any bleeding or leakage is noted please call your doctor's office. This will remain on your incision for 7 days and then should be removed. This can be done yourself or by the home nursing staff if applicable. The entire unit is disposable once removed. Once removed, keep incision clean and dry. If redness or drainage is noted, please call your surgeon. ONCE CHITO IS REMOVED, FOLLOW THESE INSTRUCTIONS: DERMABOND Prineo- This is a mesh tape dressing that is covered with glue. It should remain in place until the incision is properly healed, usually 10-14 days . This dressing is designed to naturally slough off. You may trim the excess mesh tape as it peels off. Incision may be briefly wet in a shower. Dry immediately by blotting with a clean, dry towel. Do not bath or swim until instructed by your doctor. Do not scratch, rub, or pick at the dressing. Do not apply any topical ointments or lotions until dressing is completely removed and/or instructed by your doctor. There may be a small piece of suture material at one end of your incision. Do not pull or trim this. If it is bothersome or catching on clothing, you may cover it with a band-aid. IF INCISION IS LEAKING THROUGH DRESSING, CALL THE OFFICE . FOLLOW UP VISIT: If appointment is not already scheduled: Please call [facility] to make a follow-up appointment for 2 weeks after your surgery at . Pending Studies at Discharge: No Stand-Alone Forms: My Photo [employer], Smoking Cessation Medications and DC Order Prescriptions: New celecoxib [Celebrex] 200 mg Capsule 200 mg PO BID 30 Days Qty: 60 0RF aspirin 81 mg Tablet,Delayed Release (Dr/Ec) 81 mg PO BID 30 Days Qty: 60 0RF acetaminophen [Tylenol Extra Strength] 500 mg Tablet 1,000 mg PO Q8 21 Days Qty: 126 0RF oxycodone 5 mg Tablet 5 - 10 mg PO Q6H PRN (Reason: pain) Qty: 30 0RF Rx Instructions: ongoing therapy, supervising dr isac lai. max 6 tabs in 24 hours docusate sodium 100 mg Capsule 100 mg PO BID 10 Days Qty: 20 0RF Continued atorvastatin 40 mg Tablet 40 mg PO QAM telmisartan [Micardis] 80 mg Tablet 80 mg PO QAM cholecalciferol (vitamin D3) [Vitamin D3] 50 mcg (2,000 unit) Tablet 50 mcg PO QAM montelukast [Singulair] 10 mg Tablet 10 mg PO DAILY PRN (Reason: sob/breathing) esomeprazole magnesium [Nexium] 40 mg Capsule,Delayed Release(Dr/Ec) 40 mg PO QAM Discontinued ibuprofen 800 mg Tablet 800 mg PO DAILY PRN (Reason: Pain) coenzyme Q10 [CoQ-10] 100 mg Capsule 100 mg PO QAM Discharge Orders: Discharge Order (Routine); Ordered 02/23/22 Ordered By: Rachel Cortez/Other Patient Handouts: DVT Post Op Prevention Admission Data Admit Date/Time: 02/22/22 12:38 Attending Provider: Walt Lai Admit Provider: Walt Lai Primary Care Provider: Steve Lombardo Other Providers: Gregorio Streeter Other Interventions: Discharge Summary Assessment (RN) Last Done: 02/23/22 10:10
== END 2022-02-23 13:04 | disposition home health service (06) ==
LOC: 3E 08:07 → ASU 08:07

== ENCOUNTER 2022-10-18 10:28 | Observation (INO) ==
--- NOTE | 2022-09-19 10:57 | PAT Medication Instructions ---
Medication Instructions Date of Service September 19, 2022 Home Medications Medication Instructions Recorded oxycodone 5 mg tablet 5 - 10 mg PO Q6H PRN pain #30 tabs 02/23/22 atorvastatin 40 mg tablet 40 mg PO QAM cholecalciferol (vitamin D3) 50 mcg (2,000 unit) tablet (Vitamin D3) 50 mcg PO QAM esomeprazole magnesium 40 mg capsule,delayed release (Nexium) 40 mg PO QAM montelukast 10 mg tablet (Singulair) 10 mg PO DAILY PRN Congestion telmisartan 80 mg tablet (Micardis) 80 mg PO QAM oxycodone 5 mg tablet 5 - 10 mg PO Q6H PRN pain coenzyme Q10 100 mg capsule (CoQ-10) 100 mg PO QAM awiqhshuz-TQF-OE-acetaminophen 6.25 mg-30 [id number]-[id number]-230hm/15mL oral liqd 30 ml PO HS ibuprofen 800 mg tablet 800 mg PO QAM phenylephrine HCl 0.5 % nasal spray 1 spray intranasal HS ASK your surgeon for instructions ibuprofen 800 mg tablet 800 mg PO QAM STOP taking 2 weeks before surgery (or as soon as possible if surgery is within 2 weeks) coenzyme Q10 100 mg capsule (CoQ-10) 100 mg PO QAM DO NOT take the morning of surgery cholecalciferol (vitamin D3) 50 mcg (2,000 unit) tablet (Vitamin D3) 50 mcg PO QAM montelukast 10 mg tablet (Singulair) 10 mg PO DAILY PRN Congestion telmisartan 80 mg tablet (Micardis) 80 mg PO QAM hsakfodxf-MOF-CN-acetaminophen 6.25 mg-30 [id number]-820hh/15mL oral liqd 30 ml PO HS Take morning of surgery With a small sip of water, OTHERWISE NOTHING TO EAT OR DRINK AFTER MIDNIGHT: atorvastatin 40 mg tablet 40 mg PO QAM esomeprazole magnesium 40 mg capsule,delayed release (Nexium) 40 mg PO QAM oxycodone 5 mg tablet 5 - 10 mg PO Q6H PRN pain (if needed) Take evening before surgery montelukast 10 mg tablet (Singulair) 10 mg PO DAILY PRN Congestion (if needed) oxycodone 5 mg tablet 5 - 10 mg PO Q6H PRN pain (if needed) brpinrwlp-WLR-JO-acetaminophen 6.25 mg-30 zi-06ka-320ov/15mL oral liqd 30 ml PO HS phenylephrine HCl 0.5 % nasal spray 1 spray intranasal HS Other Notes If you have any questions please call us at [phone] or [phone] or [phone] or [phone]
--- NOTE | 2022-09-22 11:21 | Anesthesiology Consultation ---
Date of Service September 22, 2022 Assessment & Plan (1) Encounter for pre-operative examination: Chart Review Chart Review: Acceptable Risk for Surgery and Patient seen in Pre Admission Testing - Check BSG AM DOS -Pt is not a good Same Day Joint candidate due to comordities Per PAT appt on 09/22/22, patient denies any recent travel or large group activities. Pt is vaccinated for Covid. Will leave to surgeon's discretion if preop Covid testing needed. Educated on importance of using Covid precautions one week prior to surgery Left TKA 02/22/22= Done under SAB at L3-4 with one attempt. Teaching & Discussion Pre-Anesthesia Teaching/Discussion Notes: Instructed NPO after midnight before surgery,except medications with 15 cc of water. Medication instructions provided according to the [facility] guidelines. History Surgery Operation Date: 10/18/22 08:25 Proposed Procedures p Right Total Knee Arthroplasty - Walt Miller DO Height/Weight Height: 6 ft 1 in Weight: 137.3 kg Allergies Allergy/AdvReac Type Severity Reaction Status Date / Time No Known Allergies Allergy Verified 09/19/22 08:12 Medications Home Medications Medication Instructions Recorded Confirmed Last Taken atorvastatin 40 mg tablet 40 mg PO QAM 01/19/22 09/19/22 02/22/22 07:00 cholecalciferol (vitamin D3) 50 50 mcg PO QAM 01/19/22 09/19/22 02/18/22 mcg (2,000 unit) tablet (Vitamin D3) esomeprazole magnesium 40 mg 40 mg PO QAM 01/19/22 09/19/22 02/22/22 07:00 capsule,delayed release (Nexium) montelukast 10 mg tablet 10 mg PO DAILY PRN Congestion 01/19/22 09/19/22 Unknown (Singulair) telmisartan 80 mg tablet (Micardis) 80 mg PO QAM 01/19/22 09/19/22 02/20/22 oxycodone 5 mg tablet 5 - 10 mg PO Q6H PRN pain #30 tabs 02/23/22 09/19/22 Unknown coenzyme Q10 100 mg capsule 100 mg PO QAM 09/19/22 09/19/22 Unknown (CoQ-10) oalwbmxej-RYL-TP-acetaminophen 30 ml PO HS 09/19/22 09/19/22 Unknown 6.25 mg-30 [id number]/15mL oral liqd ibuprofen 800 mg tablet 800 mg PO QAM 09/19/22 09/19/22 Unknown phenylephrine HCl 0.5 % nasal spray 1 spray intranasal HS 09/19/22 09/19/22 Unknown Past Medical History Medical History BPH (benign prostatic hyperplasia) Diabetes mellitus, type 2 diet controlled, Hgb A1c 6.6 on 09/22/22 Dyspnea on exertion Ongoing x 6 months preceding COVID-19 illness, worse after Covid infection- breathing improved - pt back to baseline. Chronic CANO due to weight per patient GERD (gastroesophageal reflux disease) controlled, stable per pt History of COVID-19 (~07/2021) 07/2021-required supplemental oxygen 3 months-follows with [facility]idi History of esophageal dilatation Symptoms stable Hyperlipidemia Hypertension controlled, stable per pt Kienbock's disease left wrist Nausea and vomiting after administration of anesthetic agent Pneumonia due to COVID-19 virus (~07/2021) treated at [facility] inpatient for ~1 week, no ventilator needed. discharged on 5lpm via n/c until October 2021. follows with PCP and [facility]. Sciatica of right side Sleep apnea cpap-nightly Vertigo intermittent, denies recent episodes Exercise / Class Metabolic Activity III < 4 Walking/Shop/Light housework (one flight of stairs - mild SOB, no chest pain ) Past Family History Family History Father Hypertension Diabetes Mother Hypertension Other No family history of adverse response to anesthesia Past Surgical History Surgical History H/O oral surgery peridontal surgery H/O wisdom tooth extraction History of appendectomy History of cholecystectomy History of colonoscopy History of esophagogastroduodenoscopy (EGD) History of open reduction and internal fixation (ORIF) procedure Left ankle History of open reduction and internal fixation (ORIF) procedure left wrist with hardware and fusion History of total knee replacement Left Total Knee Arthroplasty(Left) utilizing Ayon & Nephew journey 2 patient matched total knee arthroplasty size femur 6 tibia 6 polythirteen patella 35 yossi Miller DO S/P epidural steroid injection SI Joint injections and Lumbar Epidural steroid injections with Pain Management [facility] Emmons S/P right knee arthroscopy (~1997) S/P scar revision left side of forehead S/P vasectomy Past Anesthesia History No Hx of Anesthesia Complications (with exception to PONV ) and No Family Hx of Anesthesia Complications History of PONV History of PONV (no issues with previous TKA ) and Hx of Motion Sickness Social History Smoking Status: Former smoker Do You Dip or Chew Tobacco: No Smoking End Date: 25 yrs ago Hx Alcohol Use: Yes alcohol intake frequency: holidays/special occasions only Hx Substance Use: No substance use type: does not use Review of Systems Patient denies chest pain, shortness of breath at rest, cough, wheezing, palpitations. No hx of seizures, stroke, ND No hx of blood clots or blood transfusions Physical Exam Vital Signs VITALS BP 117/77 P 82 TEMP 97.8 SP02 95% RESP 16 Constitutional no acute distress ENMT Mouth: no TMJ clicking Thyromental Distance: > or= 3.5 Finger Breadths (3.5) Mallampati Class: III Missing molars Neck neck extension not limited Respiratory normal respiratory effort; no respiratory distress Auscultation: lungs clear to auscultation bilaterally; no wheezes Cardiovascular Rate/Rhythm: regular rate and regular rhythm Heart Sounds: no murmur Vessels: no carotid bruit Heart sounds mildly diminished throughout Musculoskeletal Spine: + pain with cervical ROM Extremities: extremities normal to inspection Psychiatric Orientation: alert Lab Results Anesthesia Preop Results Results Anesthesia Widget: WBC 7.79 K/ul (4.8-10.8) 09/22/22 Hgb 15.6 g/dl (14.0-18.0) 09/22/22 Hct 46.1 % (42.0-52.0) 09/22/22 Plt 223 K/uL (130-400) 09/22/22 Na 138 mmol/L (136-145) 09/22/22 K 4.2 mmol/L (3.5-5.1) 09/22/22 Cl 104 mmol/L (98-107) 09/22/22 CO2 29 mmol/L (21-32) 09/22/22 BUN 18 mg/dl (6-23) 09/22/22 Creat 0.92 mg/dl (0.6-1.4) 09/22/22 Glucose Level 92 mg/dl (70-99(Fasting)) 09/22/22 PT 10.9 Seconds (9.0-12.0) 09/22/22 PTT 26.5 Seconds (21.0-31.0) 09/22/22 INR 1.0 (0.9-1.1) 09/22/22 HA1c 6.6 % (4.5-5.6) H 09/22/22 Urine Color Yellow 09/22/22 Urine Appearance Clear (Clear) 09/22/22 Urine pH 5.5 (4.5-7.5) 09/22/22 Urine Specific [place] 1.022 (1.000-1.030) 09/22/22 Urine Protein Negative (Negative) 09/22/22 Urine Glucose (UA) Negative (Negative) 09/22/22 Urine Ketones Trace (Negative) H 09/22/22 Urine Blood Negative (Negative) 09/22/22 Urine Nitrite Negative (Negative) 09/22/22 Urine Bilirubin Negative (Negative) 09/22/22 Urine Urobilinogen Negative (Negative) 09/22/22 Urine Leukocyte Esterase Negative (Negative) 09/22/22 Blood Type A Positive 09/22/22 Antibody Screen NEGATIVE 09/22/22 Testing Electrocardiogram Date: 09/22/22 Findings: + NSR @ (73bpm) Normal EKG per cardio Chest X-Ray Date: 09/22/22 FINDINGS: PA and lateral chest radiographs are compared to study dated 01/24/2022. The heart is mildly enlarged. The pulmonary vasculature is noncongested. No airspace consolidation or pleural effusion is identified. Scarlike opacities throughout the left lung are similar to previous. There is no pneumothorax. The skeletal structures are osteopenic. The bony thorax appears intact. Advanced arthritic change is seen in the shoulders. Cholecystectomy clips are seen in the upper abdomen. IMPRESSION: 1. Cardiomegaly with no disease in the chest. 2. Scar-like opacities in the left lung are unchanged from previous. Echocardiogram Date: 08/27/21 EF: 65% LV Function: normal Other Findings: + diastolic dysfunction (Grade 1); no LVH Cannot exclude regional wall motion abnormalities. COVID-19 Risk Screen Screening Information COVID-19 Screen Date: 09/22/22 Exposure 21 Days Family/Household +COVID Last 21 Days: No Exposure 10 Days Any COVID Exposure Last 10 Days: No Symptoms Last 10 Days Experienced COVID Sx Last 10 Days: No + COVID 0-90 Days COVID + in Last 0-90 Days: No Risk Plan COVID Risk Plan: No Risk Identified Patient Education COVID Preop Screening Education Complete: Yes
--- NOTE | 2022-09-23 07:43 | History & Physical Report ---
Date of Service September 23, 2022 date of surgery: 10/18/22 Procedure: Right Total Knee Arthroplasty Surgeon: Walt Miller Assessment & Plan (1) Arthritis of right knee: Plan: Risks and benefits of procedure discussed in detail today, patient would like to proceed with a rightt total knee replacement at [facility] as scheduled. will obtain medical clearance from Dr Lombardo prior to surgery as well as obtain PATs at [facility]. Will place on ASA 81mg po bid x 1 month post op, f/u 2 weeks post op for routine post-operative care and x-ray, sooner if having any problems. will make arrangements for HHPT at the time of discharge. At this point in time, has failed conservative measures and would like to proceed with surgical intervention. The risks and benefits have been discussed including, but not limited to, risk of infection, nerve injury, stiffness, loss of motion, failure to improve, etc. Reasonable outcomes and options of treatment were discussed. An explanation of appropriate alternatives to the procedure that may be advantageous were discussed and their risks and benefits, as well as the risks and benefits of not proceeding with treatment. I offered to answer any additional inquiries concerning the treatment involved. All the patient's questions were answered. The patient is agreeable, understanding of the treatment plan and alternatives, and wishes to proceed with the treatment plan. History of Present Illness Chief Complaint: Right knee pain Primary Care Provider: Steve Lombardo DO Russell is a pleasant 67-year-old male presents for preop evaluation prior to his right total knee replacement. He states that he has been having pain in his knee for many years now which is gradually worsened and is now affecting his daily activities. He has tried and failed previous cortisone injections as well as viscosupplementation without relief. He has tried oral anti-inflammatories and Tylenol, currently rates his pain is 7 out of 10. He has complaints of pain stiffness decreased range of motion, at this point time is failed conservative measures like proceed with a right total knee replacement Allergies Allergy/AdvReac Type Severity Reaction Status Date / Time No Known Allergies Allergy Verified 09/19/22 08:12 Home Medications Medication Instructions Recorded Confirmed Type atorvastatin 40 mg tablet 40 mg PO QAM 01/19/22 09/19/22 History cholecalciferol (vitamin D3) 50 50 mcg PO QAM 01/19/22 09/19/22 History mcg (2,000 unit) tablet (Vitamin D3) esomeprazole magnesium 40 mg 40 mg PO QAM 01/19/22 09/19/22 History capsule,delayed release (Nexium) montelukast 10 mg tablet 10 mg PO DAILY PRN Congestion 01/19/22 09/19/22 History (Singulair) telmisartan 80 mg tablet (Micardis) 80 mg PO QAM 01/19/22 09/19/22 History oxycodone 5 mg tablet 5 - 10 mg PO Q6H PRN pain #30 tabs 02/23/22 09/19/22 Rx coenzyme Q10 100 mg capsule 100 mg PO QAM 09/19/22 09/19/22 History (CoQ-10) iqzxspfwc-OXY-YB-acetaminophen 30 ml PO HS 09/19/22 09/19/22 History 6.25 mg-30 ma-95ap-759pi/15mL oral liqd ibuprofen 800 mg tablet 800 mg PO QAM 09/19/22 09/19/22 History phenylephrine HCl 0.5 % nasal spray 1 spray intranasal HS 09/19/22 09/19/22 History Past Med/Surg History Medical History BPH (benign prostatic hyperplasia) Diabetes mellitus, type 2 diet controlled, last A1C ~6.4 Dyspnea on exertion ongoing x 6 months preceding COVID-19 illness, occasionally worsening such as in past few days per pt and with occasional wheezes-states has upcoming PFTs and CT scan by pul; denies chest discomfort, pleuritic chest discomfort or change in chronic peripheral edema > improving per pt GERD (gastroesophageal reflux disease) controlled, stable per pt History of COVID-19 (~07/2021) 07/2021-required supplemental oxygen 3 months-follows with [facility] History of esophageal dilatation Symptoms stable Hyperlipidemia Hypertension controlled, stable per pt Kienbock's disease left wrist Nausea and vomiting after administration of anesthetic agent Pneumonia due to COVID-19 virus (~07/2021) treated at [facility] inpatient for ~1 week, no ventilator needed. discharged on 5lpm via n/c until October 2021. follows with PCP and Lung Center [facility] . Sciatica of right side Sleep apnea cpap-nightly Vertigo intermittent, denies recent episodes Surgical History H/O oral surgery peridontal surgery H/O wisdom tooth extraction History of appendectomy History of cholecystectomy History of colonoscopy History of esophagogastroduodenoscopy (EGD) History of open reduction and internal fixation (ORIF) procedure Left ankle History of open reduction and internal fixation (ORIF) procedure left wrist with hardware and fusion History of total knee replacement Left Total Knee Arthroplasty(Left) utilizing Ayon & Nephew journey 2 patient matched total knee arthroplasty size femur 6 tibia 6 polythirteen patella 35 wayne- Walt J Paul, S/P epidural steroid injection SI Joint injections and Lumbar Epidural steroid injections with Pain Management 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 How many Children do You have: 2 How many Children do You have Comment: sons Feels Safe at Home: Yes Assistive Devices: CPAP and Glasses Review of Systems Review of Systems: All systems reviewed & are unremarkable except as noted in HPI & below Constitutional: no fever, no chills and no sweats Respiratory: no cough and no dyspnea Cardiovascular: no chest pain, no dyspnea and no orthopnea Gastrointestinal: no abdominal pain, no nausea and no vomiting Musculoskeletal: as per Subjective / HPI Physical Exam Physical Exam: HT: 6ft 1in WT: 137kg Constitutional: WD/WN, vitals as above no acute distress Respiratory: normal respiratory effort, lungs clear to auscultation no respiratory distress, no labored breathing and does not use accessory muscles Cardiovascular: RRR, no murmur, no edema Gastrointestinal (Abdomen): normal bowel sounds, soft, nontender, no hepatosplenomegaly Musculoskeletal: Knee: + knee abnormal to inspection (Right Knee), + effusion (+1 effusion), + limited ROM of knee (ROM 0/3/110), + knee ROM with crepitation, + joint line tenderness (medial joint line) and + Mikel's sign positive; no deformity, no skin erythema, no ecchymosis, no valgus laxity, no varus laxity, anterior drawer test negative, Naish's sign negative and pivot shift test negative Results & Data Results & Data ([facility]) Diagnostic Findings Right Knee X-ray: Right knee series showing advanced degenerative changes to the right knee, na rrowing of the medial compartment and patello-femoral joint with patellar spurring noted, findings showing joint space narrowing of the medial compartment and patello-femoral joint, osteophyte formation and subchondral sclerosis noted. overall varus alignment. no acute bony pathology noted.
[~2022-10-18 10:28] MED LIST changes: +BUPIVACAINE 0.25% PF 30 ML VIAL ONE; +DEXAMETHASONE SOD INJ 4 MG/ML VIAL ONE; +MIDAZOLAM HCL 1 MG/ML 2ML VIAL ONE; +ONDANSETRON INJ 2 MG/ML 2 ML VIAL ONE; +PROPOFOL IV EMULSION 10 MG/ML 20 ML VIAL IV ONE; -ROPIVACAINE 0.5% 5 MG/ML 30 ML VIAL ONE; +fentaNYL citrate PF 100 MCG/2 ML VIAL ONE
--- NOTE | 2022-10-18 11:16 | History & Physical Bridge Note ---
Date of Service October 18, 2022 History & Physical Bridge Note I have examined the patient, reviewed the History & Physical and in the interval since the performance of the History & Physical I have noted the following changes of clinical significance: no changes noted
[2022-10-18] MEDS ORDERED: ORTHO JOINT ANESTHETIC ONE (12:00)
[2022-10-18] MEDS ORDERED: ONDANSETRON INJ 2 MG/ML 2 ML VIAL IV PRN ×2 (12:34→15:31)
[2022-10-18] MEDS ORDERED: PROMETHAZINE HCL 6.25 MG in SODIUM CHLORIDE 0.9% 50 ML IV PRN (12:34)
[2022-10-18] MEDS ORDERED: ATROPINE SULFATE 0.1 MG/ML 10ML SYR IV PRN (12:34)
[2022-10-18] MEDS ORDERED: ePHEDrine sulfate 50 MG/ML AMP IV PRN (12:34)
[2022-10-18] MEDS ORDERED: fentaNYL citrate PF 100 MCG/2 ML VIAL IV PRN (12:34)
[2022-10-18] MEDS ORDERED: PROPOFOL IV EMULSION 10 MG/ML 20 ML VIAL IV ONE ×3 (13:12→14:06)
[2022-10-18] MEDS ORDERED: KETAMINE 50 MG/5 ML SYRINGE ONE (13:38)
--- NOTE | 2022-10-18 14:06 | Operative Report ---
Post Operative Report Pre & Post Diagnosis Operation Date: 10/18/22 11:55 Pre-Op Diagnosis: Degenerative Joint Disease Knee Right Post-Op Diagnosis: Degenerative Joint Disease Knee Right I identified the patient and participated in the time-out.: Yes Procedure Operation Date: 10/18/22 11:55 Actual Procedures p Right Total Knee Arthroplasty(Right) utilizing Ayon [employer]ph[employer] Index journey 2 patient matched total knee arthroplasty size femur 7 tibia 7 Poly 12 patella 35 wayne- Walt Miller DO Surgeon Walt Miller DO Entry Level Electrical Engineer REGINO Michelle Estimated Blood Loss 10 Findings Consistent with Post-Op Diagnosis Patient presents with severe end-stage tricompartmental DJD varus alignment 10 degree flexion contracture eburnated [id number]-tq-puta with marginal osteophytes and a moderate to large effusion Specimens Bone and cartilage Drains Medium bore Hemovac Anesthesia Type MAC Spinal Regional Complications none Disposition Accompanied Patient To Recovery: No Disposition: Recovery Room Indications Patient presents with severe end-stage DJD after failed attempted conservative management clinic physical therapy anti-inflammatories relative rest activity modification corticosteroid injection viscosupplementation above intraoperative findings were noted Description of Procedure After proper prepping and draping of the Right lower extremity anterior midline incision was made over the region of the extensor extensor mechanism after meticulous hemostasis was obtained and maintained in subcutaneous tissues a medial parapatellar incision was made The patella was subluxed lateralward the medial lateral gutter were cleaned from any hypertrophic synovitis and scar tissue of the distal femoral block was placed and the distal femoral osteotomy cut was made subsequently the chamfers anterior and posterior osteotomy cuts were made utilizing the 4-in-1 block the tibia was subsequently subluxed anteriorward medial and ateral meniscal remnants were excised in their entirety remnants of the anterior and posterior cruciate ligaments were excised in their entirety excellent exposure of the proximal tibia was obtained the tibial osteotomy guide was placed on the proximal tibial osteotomy cut was made once again the knee was irrigated with copious amounts of sterile saline solution the patella was subsequently everted lateralward thickened scar tissue around the patella was removed the patella was subsequently cut utilizing a freehand technique and was drilled prepared for final preparation and placement of patella socially flexion-extension gaps were checked and the equal and symmetric trials were placed to the appropriate femoral and tibial trials with poly-spacer being placed for equal flexion and extension gaps and full range of motion including extension to 0 and flexion to 140 the trial components after having been taken to recovery range of motion was subsequently removed meticulous hemostasis was obtained and maintained subsequently a knee block injection of joint cocktail including ropivacaine 0.5% 150 mg. Bupivacaine 0.5% epinephrine 1-200,030 mL's toradol 30 mg dexamethasone 4 mg ketamine 10 mg clonidine 100 micrograms normal saline solution 30 mg was infiltrated into the soft tissues of the posterior knee medial lateral gutters and periosteal synovium special attention was paid to protect neurovascular structures at all times subsequently trial components having been removed the knee was irrigated with sterile saline solution. debris was removed the proximal tibia was subsequently prepared and was made ready for the placement of the tibial component tibial component was also cemented and tamped into position the femoral component was subsequently placed and cemented in the position the patellar component was subsequently cemented in position because hemostasis once again obtained and maintained wound having been thoroughly irrigated with debridement and debridement lavage was performed as well as a medial parapatellar incision closed with #1 Vicryl in interrupted fashion subcutaneous was closed with #2 Vicryl skin was closed with skin clips. PA-C was necessary for prepping and drapping as well as wound closure of deep fascia Sub cutaneous tissue and skin and was necessary for the case. A sterile compressive dressing was placed patient was taken to recovery in stable condition of report dictated by Paul I attest to the content of the Intraoperative Record and any orders documented therein. Any exceptions are noted below.Due to the complex nature of the procedure, the entire surgery was performed with the operational assistance of REGINO Michelle. The assistant inventory manager, under direct supervision, was involved in the actual performance of all aspects of the surgical procedure including hemostasis, tissue retraction and incision, instrument management, patient positioning, and wound closure. I attest to the content of the Intraoperative Record and any orders documented therein. Any exceptions are noted below.
--- NOTE | 2022-10-18 15:09 | XRay Report ---
XR knee RT 1 or 2V routine CLINICAL HISTORY: Surgical Post Op TECHNIQUE: 2 views of the right knee were obtained. Comparison: None available at the time of this dictation. FINDINGS: Patient is status post total knee arthroplasty with expected postsurgical changes including soft tiss ue swelling and subcutaneous emphysema. No periarticular lucency or hardware fracture is seen. IMPRESSION: Expected postoperative appearance status post placement of total knee arthroplasty. ACT 112: Negative or not required by law. Electronically signed by: Shlomo De Souza M.D. 10/18/2022 3:08 PM
[2022-10-18] MEDS ORDERED: bisacodyL 10 MG SUPP PR PRN (15:31)
[2022-10-18] MEDS ORDERED: diphenhydrAMINE Capsule 25 MG CAP PO PRN (15:31)
[2022-10-18] MEDS ORDERED: MONTELUKAST SODIUM 10 MG TABLET PO PRN (15:31)
[2022-10-18] MEDS ORDERED: NALOXONE HCL 0.4 MG/1 ML VIAL/CARP IV PRN (15:31)
[2022-10-18] MEDS ORDERED: MAGNESIUM HYDROXIDE SUSP 30 ML UDC PO PRN (15:31)
[2022-10-18] MEDS ORDERED: METOCLOPRAMIDE HCL INJ 5 MG/ML 2 ML VIAL IV PRN (15:31)
[2022-10-18] MEDS ORDERED: HYDROmorphone INJ 1 MG/ML SYRINGE IV PRN (15:31)
--- NOTE | 2022-10-18 15:35 | Anesthesiology Progress Note ---
Date of Service October 18, 2022 Anesthesia Post Procedure Vital Signs Vital Signs: Temp Pulse Resp BP Pulse Ox O2 Del Method O2 Flow Rate 10/18/22 15:32 36.5 C 76 18 98/63 L 97 Room Air 10/18/22 15:10 72 18 94/64 L 95 Room Air 10/18/22 15:00 36.4 C L 75 18 96/60 L 95 Room Air 10/18/22 14:50 84 18 95/62 L 96 Oxymask 5 10/18/22 14:40 36.5 C 80 18 90/53 L 97 Oxymask 5 10/18/22 10:50 36.5 C 83 20 138/80 96 Room Air Transfer of Care Handoff Completed per policy Notes Mental Status: alert / awake / arousable Patient Amnestic to Procedure: Yes Nausea / Vomiting: adequately controlled Pain: adequately controlled Airway Patency, RR, SpO2: stable & adequate BP & HR: stable & adequate Hydration State: stable & adequate Neuraxial Anesthesia: was administered and sensory block is resolving Anesthetic Complications: no major complications apparent and Pt Satisfied with anesthetic care
[2022-10-18] MEDS: SODIUM CHLORIDE 0.9% 1000ML 1,000 ML IV SCH (16:58)
[2022-10-18] MEDS: KETOROLAC TROMETHAMINE 15 MG/ML VIAL IV SCH ×2 (16:59→22:40)
[2022-10-18] MEDS ORDERED: PHARMACY GLYCEMIC MGMT CONSULT PRN (17:21)
[2022-10-18] MEDS: oxyCODONE HCL IR 5 MG TAB (IMMEDIATE RELEASE) PO PRN ×2 (17:48→22:39)
[2022-10-18] MEDS ORDERED: SENNA 8.6 MG TAB PO SCH (21:00)
[2022-10-18] MEDS ORDERED: PHENYLEPHRINE HCL 0.5% NA SPRAY 15 ML BTL NAE SCH (21:00)
[2022-10-18] MEDS: DOCUSATE SODIUM 100 MG CAP PO SCH (21:02)
[2022-10-18] MEDS: ASPIRIN 81 MG ECTAB PO SCH (21:02)
[2022-10-18] MEDS: ACETAMINOPHEN 500 MG TAB PO SCH (21:17)
[2022-10-18] MEDS: ceFAZolin 2000MG 2,000 MG/15 ML SYR IV SCH (21:32)
[2022-10-18] MEDS: LANTUS PER UNIT CHARGE SQ SCH (21:35)
[2022-10-18] MEDS: INSULIN ASPART PER UNIT CHARGE SC SCH (21:36)
[2022-10-19] MEDS: SODIUM CHLORIDE 0.9% 1000ML 1,000 ML IV SCH (02:58)
[2022-10-19] MEDS: oxyCODONE HCL IR 5 MG TAB (IMMEDIATE RELEASE) PO PRN ×3 (04:05→12:47)
[2022-10-19] MEDS: KETOROLAC TROMETHAMINE 15 MG/ML VIAL IV SCH ×2 (04:07→09:53)
[2022-10-19] MEDS: ACETAMINOPHEN 500 MG TAB PO SCH (05:37)
[2022-10-19] MEDS: ceFAZolin 2000MG 2,000 MG/15 ML SYR IV SCH (05:37)
--- NOTE | 2022-10-19 07:17 | Orthopedic Progress Note ---
Date of Service October 19, 2022 Assessment & Plan (1) History of total right knee replacement: Plan: POD #1 s/p Right TKA pt/ot dvt proph with LILIANA/SCD/ASA plan for d/c home with HHPT after PT Today Admission and Anticipated Discharge Date Admission Date: October 18, 2022 Subjective POD #1 s/p Right TKA Review of Systems Constitutional: no fever, no chills and no sweats Respiratory: no cough and no dyspnea Cardiovascular: no chest pain and no dyspnea Gastrointestinal: no abdominal pain, no nausea and no vomiting Physical Exam Physical Exam: Vital Signs Temp 36.5 C 10/19/22 07:12 Pulse 81 10/19/22 07:12 Resp 18 10/19/22 07:12 BP 113/70 10/19/22 07:12 Pulse Ox 96 10/19/22 07:12 O2 Del Method Room Air 10/19/22 07:12 O2 Flow Rate 5 10/18/22 14:50 Intake & Output 10/18/22 10/19/22 10/19/22 18:59 06:59 18:59 Intake Total 1572.5 / 1975.833 403.333 / 1975.833 Output Total 40 / 1290 1250 / 1290 Balance 1532.5 / 685.833 -846.667 / 685.833 Weight 136.032 kg Intake: IV 272.5 / 675.833 403.333 / 675.833 Lactated Ringe r's 1,000 ml @ 15 0 / 0 mls/hr IV .Q24 H JV Rx#: [id number] Sodium Chlorid e 0.9% 1000ML 1, 403.333 / 403.333 000 ml @ 100 m ls/hr IV .Q10H JV Rx#:[id number] Tranexamic Aci d / 0.7% NaCl 1, 200 / 200 000 mg In 100 ml @ 600 mls/hr IV TODAY@0600 JV Rx#:[id number] ceFAZolin 3000 MG 72.5 ml @ 130 72.5 / 72.5 mls/hr IV PREO P JV Rx#: [id number] IV Perioperative 1300 / 1300 Output: Urine 750 / 750 Estimated Blood Loss 10 / 10 Drain Output 30 / 530 500 / 530 Right Knee Hem ovac 30 / 530 500 / 530 Other: Weight Measureme nt Method Standing Scale Musculoskeletal: Right Leg: NVDI, calf SNT, negative paolo sign. DP palpable, able to wiggle toes/ankle movement without difficulty. dressing clean dry and intact. Results & Data ([facility]) Vital Signs (Past 12 Hours) Vital Signs Temp Pulse Resp BP Pulse Ox O2 Del Method 10/19/22 07:12 36.5 C 81 18 113/70 96 Room Air 10/19/22 04:37 36.7 C 83 18 110/70 94 Room Air 10/19/22 00:00 36.7 C 72 18 103/77 95 Room Air 10/18/22 20:42 36.8 C 85 18 114/75 95 Room Air
--- NOTE | 2022-10-19 07:22 | Discharge Summary ---
Date of Service date of discharge: October 19, 2022 date of admission: 10-18-22 Admission HPI Per Admitting Provider Russell is a pleasant 67-year-old male presents for preop evaluation prior to his right total knee replacement. He states that he has been having pain in his knee for many years now which is gradually worsened and is now affecting his daily activities. He has tried and failed previous cortisone injections as well as viscosupplementation without relief. He has tried oral anti-inflammatories and Tylenol, currently rates his pain is 7 out of 10. He has complaints of pain stiffness decreased range of motion, at this point time is failed conservative measures like proceed with a right total knee replacement Principal Diagnosis right knee osteoarthritis Discharge Exam Vital Signs Temp 36.5 C 10/19/22 07:12 Pulse 81 10/19/22 07:12 Resp 18 10/19/22 07:12 BP 113/70 10/19/22 07:12 Pulse Ox 96 10/19/22 07:12 O2 Del Method Room Air 10/19/22 07:12 O2 Flow Rate 5 10/18/22 14:50 Intake & Output 10/18/22 10/19/22 10/19/22 18:59 06:59 18:59 Intake Total 1572.5 / 1975.833 403.333 / 1975.833 Output Total 40 / 1290 1250 / 1290 Balance 1532.5 / 685.833 -846.667 / 685.833 Weight 136.032 kg Intake: IV 272.5 / 675.833 403.333 / 675.833 Lactated Ringer's 1,000 ml @ 15 0 / 0 mls/hr IV .Q24H JV Rx#: [id number] Sodium Chloride 0.9% 1000ML 1, 403.333 / 403.333 000 ml @ 100 mls/hr IV .Q10H JV Rx#:[id number] Tranexamic Acid / 0.7% NaCl 1, 200 / 200 000 mg In 100 ml @ 600 mls/hr IV TODAY@0600 JV Rx#:[id number] ceFAZolin 3000MG 72.5 ml @ 130 72.5 / 72.5 mls/hr IV PREOP JV Rx#: [id number] IV Perioperative 1300 / 1300 Output: Urine 750 / 750 Estimated Blood Loss 10 / 10 Drain Output 30 / 530 500 / 530 Right Knee Hemovac 30 / 530 500 / 530 Other: Weight Measurement Method Standing Scale Musculoskeletal Right knee: NVDI, calf SNT, negative paolo sign. DP palpable, able to wiggle toes/ankle movement without difficulty. CHITO dressing clean dry and intact. Discharge Data Allergies Allergy/AdvReac Type Severity Reaction Status Date / Time No Known Allergies Allergy Verified 10/18/22 11:01 Procedures Performed Operation Date: 10/18/22 11:55 Actual Procedures p Right Total Knee Arthroplasty(Right) - Walt Lai DO Ordered Studies 10/18/22 05:00 US - OR guided needle placemen Routine Hospital Course (1) History of total right knee replacement: POD #1 s/p Right TKA pt/ot dvt proph with LILIANA/SCD/ASA plan for d/c home with HHPT after PT Today Total Time Total Time Spent Total Time Spent (In Minutes): 20 Discharge Plan Discharge Items Patient Disposition: Home - Home Health Services Reason For Visit: DJD Knee Right Discharge Diagnosis: right total knee replacement Activity: Per Instructions section Weightbearing Comment: WBAT with walker Non-emergency contact: Surgeon Call non-emergency contact if: you have any medication questions, your temperature is above 101, your wound has increased redness, your wound has incr eased drainage and your wound pain has increased Follow-up/Referrals: Bakari Louis D.O. [Primary Care Provider] - Diet: Carb Consistent or DM2 Addtl Attending Provider Instructions: ACTIVITY RECOMMENDATIONS: SELF CARE INSTRUCTIONS AFTER TOTAL KNEE REPLACEMENT A. You may need to continue a physical therapy program after discharge from the hospital. There are several options available to you. Your doctor will assist you in selecting the best one for you. 1. An out-patient facility 2 to 3 times a week for therapy or home therapy. 2. Continue working on all exercises taught to you in the hospital. Your goals should be to increase bending of your knee to 90 degrees and beyond and to fully straighten your knee. B. You may progress at your own pace from walking with a walker or crutches to a cane; then to no assistive devices. C. Make walking a part of your daily routine. Be up as much as comfortable with rest periods throughout the day. Rest with leg elevation is very important. Use the ice wrap frequently for the first 3-4 weeks. D. There are no restrictions on activities. 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 E. Wear the long elastic stockings (LILIANA hose) 20 hours a day for 2 weeks after surgery. They can be removed several times a day for laundering and for a bath. F. You may shower, no tub baths until cleared by your doctor. SPECIAL CARE INSTRUCTIONS: VERY IMPORTANT TO READ AND REVIEW A. There are a few signs you need to watch for after you are home. Call [facility] if you notice any of the followin. Increased severe knee pain. Some pain is expected especially when you exercise. 2. Increased swelling in your leg or knee; pain or swelling of the calf muscle in either lower leg. 3. Any fluid drainage from the incision. 4. Shortness of breath or chest pain. B. Please call [facility] at if you have any concerns or questions about your operation or recovery. The doctor or his nurse will return your call promptly. C. You must take antibiotics before dental work, bladder, bowel or other surgery. Your doctor will provide you with a permanent care to carry describing this precaution. IMPORTANT: * REMEMBER TO TAKE ASPIRIN, 81 MG, TWICE DAILY FOR 4 WEEKS UNLESS OTHERWISE DIRECTED. THIS IS YOUR BLOOD THINNER. * HIGH RISK PATIENTS MAY BE PRESCRIBED A STRONGER BLOOD THINNER. THIS WILL BE PROVIDED AT DISCHARGE. * CALL IF INCREASED PAIN, REDNESS, DRAINAGE OR FEVER GREATER THAT 101. * WEAR LILIANA HOSE 20 HOURS PER DAY FOR 2 WEEKS. * DRESSING INSTRUCTIONS * CHITO Dressing- This is a large suction dressing covering your incision. This will help pull any excess drainage from the wound and allow your incision to heal properly. You may shower with this if you can keep the unit outside of the shower. If any bleeding or leakage is noted please call your doctor's office. This will remain on your incision for 7 days and then should be removed. This can be done yourself or by the home nursing staff if applicable. The entire unit is disposable once removed. Once removed, keep incision clean and dry. If redness or drainage is noted, please call your surgeon. ONCE CHITO IS REMOVED, FOLLOW THESE INSTRUCTIONS: DERMABOND Prineo- This is a mesh tape dressing that is covered with glue. It should remain in place until the incision is properly healed, usually 10-14 days. This dressing is designed to naturally slough off. You may trim the excess mesh tape as it peels off. Incision may be briefly wet in a shower. Dry immediately by blotting with a clean, dry towel. Do not bath or swim until instructed by your doctor. Do not scratch, rub, or pick at the dressing. Do not apply any topical ointments or lotions until dressing is completely removed and/or instructed by your doctor. There may be a small piece of suture material at one end of your incision. Do not pull or trim this. If it is bothersome or catching on clothing, you may cover it with a band-aid. IF INCISION IS LEAKING THROUGH DRESSING, CALL THE OFFICE . FOLLOW UP VISIT: If appointment is not already scheduled: Please call [facility] to make a follow-up appointment for 2 weeks after your surgery at . Stand-Alone Forms: My [facility] Medications and DC Order Prescriptions: New celecoxib [Celebrex] 200 mg Capsule 200 mg PO BID 30 Days Qty: 60 0RF aspirin 81 mg Tablet,Delayed Release (Dr/Ec) 81 mg PO BID 30 Days Qty: 60 0RF acetaminophen [Tylenol Extra Strength] 500 mg Tablet 1,000 mg PO Q8 21 Days Qty: 126 0RF oxycodone 5 mg Tablet 5 - 10 mg PO Q6H PRN (Reason: pain) Qty: 30 0RF Rx Instructions: ongoing therapy, supervising dr isac lai. max 6 tabs in 24 hours cefadroxil 500 mg capsule 500 mg PO BID 14 Days Qty: 28 0RF Continued atorvastatin 40 mg Tablet 40 mg PO QAM telmisartan [Micardis] 80 mg Tablet 80 mg PO QAM montelukast [Singulair] 10 mg Tablet 10 mg PO DAILY PRN (Reason: Congestion) Sinex Regular 0.5 % [place],Non-Aerosol 1 spray INTRANASAL HS metformin 500 mg Tablet 500 mg PO DAILY sildenafil [Viagra] 100 mg Tablet 100 mg PO DAILY PRN (Reason: Erectile Dysfunction) Rx Instructions: administer 30 minutes to 4 hours before activity cholecalciferol (vitamin D3) 1,250 mcg (50,000 unit) Tablet See Rx Instructions .ROUTE .COMPLEX Rx Instructions: 1 tablet by mouth once weekly omeprazole 40 mg Capsule,Delayed Release(Dr/Ec) 40 mg PO DAILY mometasone [Nasonex] 50 mcg/actuation [place],Non-Aerosol 1 spray INTRANASAL BID Rx Instructions: administer into each nostril Discontinued oxycodone 5 mg Tablet 5 - 10 mg PO Q6H PRN (Reason: pain) Qty: 30 0RF Rx Instructions: ongoing therapy, supervising dr isac lai. max 6 tabs in 24 hours ibuprofen 800 mg Tablet 800 mg PO QAM coenzyme Q10 [CoQ-10] 100 mg Capsule 100 mg PO QAM NyQuil D 6.33-06-85-500 mg/15 mL Liquid 30 ml PO HS Rx Instructions: while awake; do not exceed 4 doses in 24 hours Krames/Other Patient Handouts: Managing Type 2 Diabetes, Healthy Meals for Diabetes, Diabetes: Meal Planning Admission Data Admit Date/Time: 10/18/22 14:44 Attending Provider: Walt Lai Admit Provider: Walt Lai Primary Care Provider: Bakari Louis
[2022-10-19 07:48] LABS: Hematocrit (blood only) 38.7 % (42.0-52.0); Hemoglobin 13.4 g/dl (14.0-18.0); Mean Corpuscular Hemoglobin 29.6 pg (25.0-34.0); Mean Corpuscular Hgb Conc 34.6 g/dL (32.0-36.0); Mean Corpuscular Volume 85.6 fL (80.0-100.0); Mean Platelet Volume 10.4 fL (9.4-12.4); Platelet Count 224 K/uL (130-400); RDW Coefficient of Variation 13.4 % (11.5-14.5); RDW Standard Deviation 42.2 fL (36.4-46.3); Red Blood Count 4.52 M/uL (4.70-6.10); White Blood Count 16.59 K/ul (4.8-10.8)
[2022-10-19 08:18] LABS: BUN Creatinine Ratio 22.1 (10-20); Calcium 8.5 mg/dl (8.5-10.1); Creatinine Clr Calc Pharmacy 101.1 ml/min; Est GFR (African American) 86.3 ml/min; Est GFR (Non-African American) 74.5 ml/min; Potassium 4.5 mmol/L (3.5-5.1)
[2022-10-19] MEDS: INSULIN ASPART PER UNIT CHARGE SC SCH (08:32)
[2022-10-19] MEDS: LANTUS PER UNIT CHARGE SQ SCH (08:33)
[2022-10-19] MEDS: DOCUSATE SODIUM 100 MG CAP PO SCH (08:34)
[2022-10-19] MEDS: ASPIRIN 81 MG ECTAB PO SCH (08:35)
[2022-10-19] MEDS ORDERED: FLUTICASONE PROPIONATE NA SPR 16 GM BTL NAE SCH (09:00)
[2022-10-19] MEDS ORDERED: LOSARTAN POTASSIUM 50 MG TAB PO SCH (09:00)
[2022-10-19] MEDS ORDERED: MULTIVITAMIN TAB PO SCH (09:00)
[2022-10-19] MEDS ORDERED: ATORVASTATIN 40 MG TAB PO SCH (09:00)
--- NOTE | 2022-10-19 14:30 | Pharmacy Report ---
Pharmacy Glycemic Short Note 2 - Date of Service October 19, 2022 - Glycemic Short BSG Results (Last 24 hours): 10/18/22 10/18/22 10/18/22 14:41 17:10 20:46 Glucose POC Glucose 115 H 167 H 181 H 10/19/22 10/19/22 10/19/22 07:17 08:15 12:04 Glucose 135 H POC Glucose 131 H 120 H 10/19/22 12:04 Glucose POC Glucose 120 H OUTPATIENT ANTIDIABETIC REGIMEN: * metformin 500 mg daily * A1c 6.6% 09/22/22 ASSESSMENT: * Consulted prior to discharge for glycemic management * Novolog started ~ weight base stress of 1. BSGs well controlled. PLAN FOR INPATIENT GLYCEMIC CONTROL: * Hold outpatient oral diabetes medications * Basal insulin * 10 units hs * Bolus insulin * NovoLog per scale ACHS or Q6hrs while NPO * Goal Range: Low 140 mg/dL - High 180 mg/dL * Correction Factor: 30 mg/dL/unit * Nutritional / Prandial insulin per carb ratio of 1 unit per 10 grams CHO consumed
[2022-10-19] MEDS ORDERED: CeleBREX 200 MG CAP PO SCH (21:00)
== END 2022-10-19 13:21 | disposition home health service (06) ==
LOC: ASU 10:28 → 3E 10:28